=== PATIENT | male | born 1960 | race Caucasian/White ===

== ENCOUNTER 2021-12-17 11:41 | Emergency (ER) | payer MEDICAID, OTHER ==
[~2021-12-17] VITALS: Ht 162.6 cm; Wt 54.4 kg
[~2021-12-17 11:41] MED LIST: METH-816 PO
[2021-12-17] MEDS ORDERED: ALBUTEROL (0.083%) 2.5MG/3ML NEB HHN STA (12:15)
[2021-12-17] MEDS ORDERED: IPRATROPIUM BROMIDE (0.02%) 0.5MG/2.5ML NEB HHN STA (12:15)
[2021-12-17] MEDS ORDERED: PREDNISONE 20MG TABLET PO STA (12:15)
[2021-12-17 12:16] LABS: BASOPHILS % 0.5 % (0.0-2.0); EOSINOPHILS % 0.8 % (0.0-5.0); HEMATOCRIT. 42.1 % (42.0-52.0); HEMOGLOBIN. 14.5 g/dL (14.0-18.0); LYMPHOCYTES % 15.3 % (20.0-50.0); MEAN CORPUSCULAR HEMOGLOBIN 30.2 pg (28.0-32.0); MEAN CORPUSCULAR VOLUME 87.9 fL (80.0-94.0); MEAN PLATELET VOLUME 6.9 fl (7.4-10.4); MONOCYTES % 6.3 % (2.0-8.0); NEUTROPHILS % 77.1 % (40.0-76.0); PLATELET 129 x1000/uL (130-400); RED BLOOD CELL COUNT 4.79 mill/uL (4.7-6.1); RED CELL DISTRIBUTION WIDTH 15.4 % (11.6-14.6)
[2021-12-17 12:22] LABS: CHLORIDE 95 mEq/L (98-107)
[2021-12-17] MEDS ORDERED: ALBU6.7H3 INH (16:07)
[2021-12-17] MEDS ORDERED: P20 MT (16:07)
[2021-12-17] MEDS ORDERED: DOXY100C5 MT (16:07)
[2021-12-17 16:23] VITALS: BP 118/92
== END 2021-12-17 16:25 | disposition home or self-care (01) ==
LOC: ER 11:41
DX: J90 Pleural effusion, not elsewhere classified (principal); J44.9 Chronic obstructive pulmonary disease, unspecified; E16.2 Hypoglycemia, unspecified; R03.0 Elevated blood-pressure reading, without diagnosis of hypertension
CPT/HCPCS: 36415; 71045; 80053; 82962; 83880; 84484; 85025; 93005; 94644; 99285; J7512; Z7610